=== PATIENT | female | born 1975 | race Caucasian/White ===

== ENCOUNTER → 2019-02-26 11:57 | Outpatient (BNVA) | payer OTHER, SELFPAY | PROVIDERS: Family Provider Family Medicine; PCP Family Medicine; Visit Provider Specialist | DX: G43.711 Chronic migraine without aura, intractable, with status migrainosus (principal) | CPT/HCPCS: 64615; J0585 ==

== ENCOUNTER → 2019-06-25 11:14 | Outpatient (BNVA) | payer OTHER, SELFPAY | PROVIDERS: Family Provider Family Medicine; PCP Family Medicine; Visit Provider Specialist | DX: G43.711 Chronic migraine without aura, intractable, with status migrainosus (principal) | CPT/HCPCS: 64615; 96372; J0585; J1885 ==

== ENCOUNTER → 2019-09-24 10:05 | Outpatient (BNVA) | payer OTHER, SELFPAY | PROVIDERS: Family Provider Family Medicine; PCP Family Medicine; Visit Provider Specialist | DX: G43.711 Chronic migraine without aura, intractable, with status migrainosus (principal); E23.7 Disorder of pituitary gland, unspecified; D35.2 Benign neoplasm of pituitary gland | CPT/HCPCS: 64615; 99213; J0585 ==

== ENCOUNTER 2019-09-24 11:25 | Outpatient (CLI) | payer OTHER, SELFPAY ==
[2019-09-24 12:21] LABS: Basophils # 0.1 10^3/uL (0.0-0.1); Basophils % 1.5 %; Eosinophils # 0.3 10^3/uL (0.0-0.8); Eosinophils % 7.8 %; Hemoglobin 11.2 g/dL (11.5-15.3); Lymphocytes # 1.3 10^3/uL (0.8-4.8); Lymphocytes % 32.8 %; Mean Corpuscular HGB Conc 31.1 g/dL (30.0-36.0); Mean Corpuscular Hemoglobin 29.3 pg (28.0-34.0); Mean Corpuscular Volume 94.2 fL (81-99); Mean Platelet Volume 9.2 fL (7.4-10.4); Monocytes # 0.3 10^3/uL (0.2-0.9); Monocytes % 8.3 %; Neutrophils # 1.97 10^3/uL (1.8-7.7); Neutrophils % 49.3 %; Nucleated Red Blood Cells % 0 %; Platelet Count 386 10^3/cmm (130-400); Red Blood Count 3.82 10^6/uL (4.1-5.3); Red Cell Distribution Width 14.7 % (12.1-15.1)
[2019-09-24 12:50] LABS: Alanine Aminotransferase 10 U/L (0-33); Albumin Level 4.3 g/dL (3.5-5.2); Alkaline Phosphatase 82 IU/L (35-105); Anion Gap 10.9 (5-19); Aspartate Amino Transferase 12 U/L (0-32); Blood Urea Nitrogen 9 mg/dL (6-20); Calcium 8.7 mg/dL (8.5-10.5); Carbon Dioxide 27 mmol/L (22-29); Chloride 103 mmol/L (98-107); Globulin 3.1 g/dL (1.3-4.6); Glomerular Filtration Rate 108.1 mL/min (90-130); Glucose 114 mg/dL (65-115); Osmolality Calculated 281 mOsm/kg (285-295); Potassium 3.9 mmol/L (3.5-5.1); Prolactin 9.06 ng/mL (4.8-23.3); Sodium 137 mmol/L (136-145); Thyroid Stimulating Hormone 1.92 uIU/mL (0.27-4.20); Total Bilirubin 0.2 mg/dL (0.15-1.2); Total Protein 7.4 g/dL (6.6-8.7)
== END 2019-09-24 11:26 | disposition home or self-care (01) ==
LOC: LAB 11:29
PROVIDERS: PCP Family Medicine; Visit Provider Specialist
DX: D35.2 Benign neoplasm of pituitary gland (principal)
CPT/HCPCS: 80053; 83003; 84146; 84443; 85025

== ENCOUNTER 2019-10-02 08:50 | Outpatient (CLI) | payer OTHER, SELFPAY ==
--- NOTE | 2019-10-02 09:30 | MR_ITS ---
WS: [id number] MRI HEAD WITHOUT AND WITH GADOLINIUM ENHANCEMENT WITH PITUITARY PROTOCOL. TECHNIQUE: Sagittal T1, T2 axial, T2 axial FLAIR, axial susceptibility weighted imaging, axial diffus ion weighted images, and coronal T2 images were obtained. Pre and post-T1 axial and post T1 coronal i mages. ADC and FSPGR images. High-resolution multiplanar pituitary imaging without and with gadoliniu m enhancement. CLINICAL INFORMATION: SEE DX COMPARISON: Multiple prior MRIs including 2017 and FINDINGS: Again seen is the T1 hyperintense peripheral enhancing suprasellar lesion just anterior to the pituit jose m infundibulum insertion. This measures approximately 3.0 x 4.6 x 3.3 mm AP by transverse by cranio caudal. Previously this measured 3.3 x 4.7 x 2.3 mm by my measurements. 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 Normal optic chiasm and pituitary infundibulum. Pituitary enhancement is otherwise normal and homogen eous. No restricted diffusion to suggest acute ischemia. No other suspicious intracranial signal abno rmalities. Normal smith-white differentiation. Normal posterior fossa. Normal vascular flow voids at t he skull base. Mild mucosal thickening in the paranasal sinuses with partial opacification. Mastoid a ir cells well aerated. No other abnormal foci of enhancement. Normal dural venous sinuses. No other s ignificant interval changes. MR/MR pituitary wo/w con* [id number] IMPRESSION: 1. Tiny intrasellar lesion with suprasellar extension measures approximately 3 .0 x 4.6 x 3.3 mm AP x transverse x craniocaudal. This is slightly more promine nt in the craniocaudal dimension compared to the prior examinations. 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 2. Previously described tiny hypoenhancing lesion in the posterior pituitary m ost likely represents incidental pars intermedia cyst. 3. Normal optic chiasm and pituitary infundibulum. 4. No other suspicious intracranial signal abnormalities. 5. Mild sinusitis. 6. No other abnormal intracranial foci of enhancement.
== END 2019-10-02 08:51 | disposition home or self-care (01) ==
LOC: RADSHAW 08:53
PROVIDERS: PCP Family Medicine; Visit Provider Specialist
DX: D35.2 Benign neoplasm of pituitary gland (principal); J32.9 Chronic sinusitis, unspecified
CPT/HCPCS: 70553; A9579